=== PATIENT | female | born 1955 | race Caucasian/White ===

== ENCOUNTER → 2017-10-23 | Outpatient (CLI) | payer OTHER ==
[~2017-10-23] MED LIST: GADOBUTROL 10 ML VIAL IVP ONE
== END ==
LOC: FIMAGING 15:10
PROVIDERS: ATTEND Internal Medicine
DX: G93.3 Postviral and related fatigue syndromes (principal); M54.2 Cervicalgia; R51 Headache
CPT/HCPCS: A9585